=== PATIENT | female | born 1985 | race American Indian/Alaskan Native ===

== ENCOUNTER 2017-08-07 17:15 | Emergency (ER) | payer SELFPAY ==
[2017-08-07 17:27] VITALS: BP 147/100
[2017-08-07] MEDS ORDERED: FUL-GLO OP ONE ×2 (19:37→21:43)
[2017-08-07] MEDS ORDERED: TETRACAINE 0.5% ONE (19:37)
[2017-08-07] MEDS ORDERED: TETRACAINE 0.5% OU ONE (21:42)
--- NOTE | 2017-08-07 21:51 | Emergency Department Report ---
Eye Injury/Foreign Body - HPI Duration: recurrent Eye Location: Right Severity: Moderate Tetanus Status: Up to Date Eye Symptoms: Eye Pain: Yes, Blurred Vision: No, Eye Redness: Yes, Grinding/ Hammering Metal: No, Used Eye Protection: No, Contact Lens Use: No, Recalls Injury: Yes (corneal abrasion 1 yr ago , pain x 2 days this episode ), Photophobia: Yes ED Review of Systems ROS: Stated complaint: RIGHT EYE INFLAMMATION Other details as noted in HPI Constitutional: denies: chills, fever Eyes: eye pain, eye discharge. denies: vision change ENT: denies: ear pain, throat pain Respiratory: denies: cough, shortness of breath, wheezing Cardiovascular: denies: chest pain, palpitations Endocrine: no symptoms reported Gastrointestinal: denies: abdominal pain, nausea, diarrhea Genitourinary: denies: urgency, dysuria, discharge Musculoskeletal: denies: back pain, joint swelling, arthralgia Skin: denies: rash, lesions Neurological: denies: headache, weakness, paresthesias Psychiatric: denies: anxiety, depression Hematological/Lymphatic: denies: easy bleeding, easy bruising ED Past Medical Hx - Past Medical History Previous Medical History?: Yes Additional medical history: Torn left cornea - Surgical History Past Surgical History?: No - Social History Smoking Status: Never Smoker Substance Use Type: None - Medications Home Medications: Home Medications Medication Instructions Recorded Confirmed Last Taken Type Bacitracin [Bacitracin Ophth] 1 applicatio OP BID #1 tube 08/07/17 Unknown Rx Ibuprofen [Motrin 800 MG tab] 800 mg PO Q8HR PRN #30 tablet 08/07/17 Unknown Rx Eye Injury Exam - Exam General: Vital signs noted. No distress. Alert and acting appropriately. ED Course Vital Signs 08/07/17 17:24 Temperature 98 F Pulse Rate 85 Respiratory 20 Rate Blood Pressure 147/100 O2 Sat by Pulse 100 Oximetry ED Medical Decision Making - Medical Decision Making pt is a 31 y/o aaf with hx of corneal abrasion 1 yr ago and recurrent conjunctivitis since, pt advised not able to see ophthalmolgy , this episode started 2 days ago with rubbing eyes pain erythema discharge since pt denies blurred or double vison visual acuituy 20/30 bilat, exam: eomi perrla conjunctival erythema, eye exam: tetracaine , flouracine stained, wood lamp small corneal abrasion left right medial cornea .lid inverted eye irrigated with sterile saline x 30 cc, no foreign body noted, tonopen: exam eye pressure 16mm/hg plan: polytrim oint, ibuprofen, follow up with ophthalmology sav pt verbalized agreement and understanding of same, Critical care attestation.: If time is entered above; I have spent that time in minutes in the direct care of this critically ill patient, excluding procedure time. ED Disposition Clinical Impression: Corneal abrasion, right Qualifiers: Encounter type: subsequent encounter Qualified Code(s): S05.01XD - Injury of conjunctiva and corneal abrasion without foreign body, right eye, subsequent encounter Conjunctivitis Qualifiers: Conjunctivitis type: acute Acute conjunctivitis type: unspecified Laterality: right Qualified Code(s): H10.31 - Unspecified acute conjunctivitis, right eye Disposition: DC- TO HOME OR SELFCARE Is pt being admited?: No Does the pt Need Aspirin: No Condition: Good Instructions: Corneal Abrasion (ED) Additional Instructions: follow up with ophthalmology sav as directed Prescriptions: Bacitracin [Bacitracin Ophth] 1 applicatio OP BID #1 tube Ibuprofen [Motrin 800 MG tab] 800 mg PO Q8HR PRN #30 tablet PRN Reason: Pain Referrals: PRIMARY CARE,MD [Primary Care Provider] - 3-5 Days Forms: Work/School Release Form(ED) Time of Disposition: 21:56
== END 2017-08-07 22:01 | disposition home or self-care (01) ==
LOC: ED 17:15
DX: S05.01XD Injury of conjunctiva and corneal abrasion without foreign body, right eye, subsequent encounter (principal); H10.31 Unspecified acute conjunctivitis, right eye; X58.XXXD Exposure to other specified factors, subsequent encounter
CPT/HCPCS: 99282